=== PATIENT | female | born 1960 | race Caucasian/White ===

== ENCOUNTER 2018-11-22 17:54 | Emergency (ER) | payer MEDICAID, OTHER ==
[~2018-11-22] VITALS: Ht 165.1 cm; Wt 59.0 kg
--- NOTE | 2018-11-22 18:45 | NUR ---
DR JORDAN AT THE BEDSIDE FOR MSE.
--- NOTE | 2018-11-22 19:24 | NUR ---
Patient discharged to home in stable conditon. Written and verbal after care instructions given. Patient verbalizes understanding of instructions. Patient ambulated with stable gait.
[2018-11-22 19:25] VITALS: BP 113/80
== END 2018-11-22 19:26 | disposition home or self-care (01) ==
LOC: ER 17:54
DX: S59.902A Unspecified injury of left elbow, initial encounter (principal); W22.8XXA Striking against or struck by other objects, initial encounter; Y93.89 Activity, other specified; Y92.89 Other specified places as the place of occurrence of the external cause; Y99.8 Other external cause status
CPT/HCPCS: 73080; A4663